=== PATIENT | female | born 1995 | race Caucasian/White ===

== ENCOUNTER 2017-10-07 12:41 | Emergency (ER) | payer MEDICAID, OTHER ==
[2017-10-07] MEDS ORDERED: Tdap Vaccine 0.5 ml Vial (10-64 yrs) IM ONE (13:07)
[2017-10-07] MEDS ORDERED: Lidocaine 2% Inj (20ml) INFIL ONE (13:07)
[2017-10-07 13:08] VITALS: PULSE 79; RESP 18; O2SAT 100
[2017-10-07] MEDS ORDERED: Lidocaine 2% MPF (5 ml) Inj ONE (13:12)
[2017-10-07] MEDS ORDERED: Bacitracin 500 Units/gm Oint Foilpak UD ONE (13:43)
--- NOTE | 2017-10-07 13:52 | C.PDOC ---
History Of Present Illness 22 year old female presents to the ED complaining of partial avulsed left thumb nail status post falling yesterday and splitting her nail in half. She denies any other injuries/trauma. Time Seen by Provider: 10/07/17 12:57 Chief Complaint (Nursing): Finger,Hand,&Wrist History Per: Patient History/Exam Limitations: no limitations Onset/Duration Of Symptoms: Days Current Symptoms Are (Timing): Still Present Past Medical History Reviewed: Historical Data, Nursing Documentation, Vital Signs Vital Signs: Last Vital Signs Temp 98.6 F 10/07/17 12:54 Pulse 79 10/07/17 12:54 Resp 18 10/07/17 12:54 BP 115/75 10/07/17 12:54 Pulse Ox 100 10/07/17 12:54 - Medical History PMH: Hypercholesterolemia Surgical History: No Surg Hx Family History: States: No Known Family Hx - Social History Hx Tobacco Use: No Hx Alcohol Use: No Hx Substance Use: No - Immunization History Hx Tetanus Toxoid Vaccination: No Hx Influenza Vaccination: No Hx Pneumococcal Vaccination: No Review Of Systems Skin: Positive for: Other (Partial avulsed left thumb bed ) Physical Exam - Physical Exam Appears: Non-toxic, No Acute Distress Skin: Warm, Dry Head: Atraumatic, Normacephalic Eye(s): bilateral: Normal Inspection Nose: Normal Oral Mucosa: Moist Neck: Supple Chest: Symmetrical Extremity: Normal ROM, Other (Partial avulsion of nail at distal nail plate of first digit of left hand ) Pulses: Left Radial: Normal, Right Radial: Normal Neurological/Psych: Oriented x3, Normal Speech Gait: Steady ED Course And Treatment O2 Sat by Pulse Oximetry: 100 (RA) Pulse Ox Interpretation: Normal Medical Decision Making Medical Decision Making: Impression: Partial avulsion of nail Orders: - Tetanus vaccination - XR of left thumb Disposition - Disposition Forms: [employer] (Polish) - 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 - Scribe Statement The provider has reviewed the documentation as recorded by the Natalyaibwalt Villa All medical record entries made by the Scribe were at my direction and personally dictated by me. I have reviewed the chart and agree that the record accurately reflects my personal performance of the history, physical exam, medical decision making, and the department course for this patient. I have also personally directed, reviewed, and agree with the discharge instructions and disposition.
--- NOTE | 2017-10-07 13:53 | C.PDOC ---
History Of Present Illness 22 year old female presents to the ED complaining of pain to left thumb and broken nail status post falling yesterday. She states her nail split across middle. She denies any other injuries/trauma. Time Seen by Provider: 10/07/17 12:57 Chief Complaint (Nursing): Finger,Hand,&Wrist History Per: Patient History/Exam Limitations: no limitations Onset/Duration Of Symptoms: Days Current Symptoms Are (Timing): Still Present Past Medical History Reviewed: Historical Data, Nursing Documentation, Vital Signs Vital Signs: Last Vital Signs Temp 98.8 F 10/07/17 14:04 Pulse 79 10/07/17 14:04 Resp 18 10/07/17 14:04 BP 118/75 10/07/17 14:04 Pulse Ox 100 10/07/17 14:15 - Medical History PMH: Hypercholesterolemia Surgical History: No Surg Hx Family History: States: No Known Family Hx - Social History Hx Tobacco Use: No Hx Alcohol Use: No Hx Substance Use: No - Immunization History Hx Tetanus Toxoid Vaccination: No Hx Influenza Vaccination: No Hx Pneumococcal Vaccination: No Review Of Systems Skin: Positive for: Other (Partial avulsion of left thumb nail ) Physical Exam - Physical Exam Appears: Non-toxic, No Acute Distress Skin: Warm, Dry Head: Atraumatic, Normacephalic Eye(s): bilateral: Normal Inspection Nose: Normal Oral Mucosa: Moist Neck: Normal ROM, Supple Chest: Symmetrical Extremity: Normal ROM, Tenderness (Left thumb), No Deformity, No Swelling, Other (Partial avulsion of distal nail plate of first digit of left hand ) Pulses: Left Radial: Normal, Right Radial: Normal Neurological/Psych: Oriented x3, Normal Speech Gait: Steady ED Course And Treatment O2 Sat by Pulse Oximetry: 100 (RA) Pulse Ox Interpretation: Normal Medical Decision Making Medical Decision Making: Impression: Partial avulsion of nail Orders: - Tetanus vaccination - XR of left thumb XR of left thumb reviewed by me, showing no acute fracture. PROCEDURE: Nail removal Performed by the emergency provider Location: left thumb Description: Distal nail plate avulsion Distal CMS: Normal. No deficits. Neurovascularly intact. Anesthesia: Lidocaine 2% Preparation: The wound was cleaned with NS and [place]. The area was prepped and draped in the usual sterile fashion. Exploration: The wound was explored and no foreign bodies were found. Procedure: Distal nail plate partially removed. Area irrigated with NS. No nail bed laceration. No foreign body. Minimal blood loss. Post-Procedure: xeroform dressing covered nail. Gauze dressing applied. Aluminum finger splint applied. The patient tolerated the procedure well and there were no complications. CSM remains intact. Patient instructed to follow up with clinic in 1-2 weeks for further evaluation. Take medications as prescribed. Return to ER if fever occurs, redness or swelling around wound, pus in the wound. Disposition Counseled Patient/Family Regarding: Diagnosis, Need For Followup, Rx Given - Disposition Referrals: Alia Ma [Psych PCP] - Sanjiv Rhodes MD [Medical Doctor] - Disposition: HOME/ ROUTINE Disposition Time: 13:47 Condition: STABLE Additional Instructions: Keep area clean and dry. May wash gently with soap and water. Change dressing 1- 2 times daily. Follow up in the clinic in 1-2 weeks. Return to ER if fever occurs, redness or swelling around wound, pus in the wound. 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 - Scribe Statement The provider has reviewed the documentation as recorded by the Scribe Melina Villa All medical record entries made by the Scribe were at my direction and personally dictated by me. I have reviewed the chart and agree that the record accurately reflects my personal performance of the history, physical exam, medical decision making, and the department course for this patient. I have also personally directed, reviewed, and agree with the discharge instructions and disposition.
[2017-10-07 14:05] VITALS: BP 118/75; TEMP 98.8
--- NOTE | 2017-10-07 15:18 | RAD ---
Date of service: 10/07/2017 PROCEDURE: Left Thumb radiographs. HISTORY: pain s.p injury COMPARISON: None. TECHNIQUE: AP radiograph of the left hand, as well as spot oblique and lateral images of thumb were obtained. FINDINGS: LEFT THUMB: Normal left thumb, without fracture or focal lesion. Remainder of the left hand (as seen on the AP view) grossly unremarkable. JOINTS: Normal. SOFT TISSUES: Normal. OTHER FINDINGS: None. IMPRESSION: No evidence of acute fracture or dislocation.
== END 2017-10-07 14:05 | disposition home or self-care (01) ==
LOC: C.ER 12:41
DX: S61.102A Unspecified open wound of left thumb with damage to nail, initial encounter (principal); W19.XXXA Unspecified fall, initial encounter